=== PATIENT | female | born 1940 | race Caucasian/White ===

== ENCOUNTER 2017-06-23 08:17 | Day surgery (SDC) | payer MEDICARE, MEDICAID ==
--- NOTE | 2017-06-23 06:03 | History and Physical Report ---
DATE: 06/22/2017. CHIEF COMPLAINT AND HISTORY OF CHIEF COMPLAINT: This is a patient with a history of intractable radiculitis and endstage lung cancer. She has a spinal opioid infusion infusing morphine and bupivacaine. During the last refill, battery depletion was identified. She is here for battery replacement. PAST MEDICAL HISTORY: Chronic obstructive pulmonary disease, degenerative arthritis, fibromyalgia, endstage lung cancer. PAST SURGICAL HISTORY: Hysterectomy, rib resection, knee replacement. MEDICATIONS ON ADMISSION: To be provided. ALLERGIES: Penicillin, sulfa, codeine. SOCIAL HISTORY: Cigarette smoking, caffeine consumption. FAMILY HISTORY: Cancer. REVIEW OF SYSTEMS: The patient is appropriate and in no acute distress. The remainder of the systems review does demonstrate respiratory problems, dyspnea, and an irregular heartbeat. PHYSICAL EXAMINATION: General: Height and weight are not available. Vital Signs: Unavailable. HEENT: Within normal limits. Lungs: Clear. Heart: Regular rate and rhythm. Abdomen: Nontender. Musculoskeletal: Examination of the musculoskeletal system shows the pump in the right posterior gluteal margin. The incisional site is intact. There is no breakdown or cellulitis. IMPRESSION: 1. INTRACTABLE LUMBAR RADICULITIS, ICD-10 CODE M54.16 AND M54.17. 2. IMPLANTED SPINAL INFUSION SYSTEM WITH MORPHINE AND BUPIVACAINE WITH BATTERY DEPLETION. PLAN: The patient is here for battery replacement on an outpatient basis. The potential risks, side effects, and complications have all been carefully reviewed and discussed. The procedure will be handled with light sedation and local infiltration. The procedure will be considered outpatient; no overnight stay should be necessary. The potential risks, side effects, and complications have all been reviewed and discussed. Questions were answered. JOB NUMBER: [id number] cc: Cheryle Talavera
[~2017-06-23 08:17] MED LIST: ACETAMINOPHEN 1,000 MG/100 ML BTL IV ONE; BUPIVACAINE HCL IV ONE; CLINDAMYCIN 600MG/50ML PREMIX 600 MG/50 ML BAG IVPB ONE; FAMOTIDINE 20MG TABLET PO ONE; MECLIZINE 25 MG TABLET PO ONE; METOCLOPRAMIDE 10 MG TABLET PO ONE; MORPHINE SULFATE IV ONE; MORPHINE SULFATE/PF 0.05 MG in 0.9 % SODIUM CHLORIDE 10ML VIA 0.95 ML IV ONE; SODIUM CHLORIDE 0.9% IV ONE
[2017-06-23] MEDS ORDERED: FENTANYL PF 100MCG/2ML VIAL IV ONE (08:18)
[2017-06-23] MEDS ORDERED: CLINDAMYCIN (PEDIATRIC DOSING) 150 MG/ML VIAL IVPB ONE (08:18)
[2017-06-23] MEDS ORDERED: BUPIVACAINE 0.75% W/EPI MPF 30ML VIAL IVP ONE (08:18)
[2017-06-23] MEDS ORDERED: MIDAZOLAM HCL 2MG/2ML VIAL IV ONE (08:18)
[2017-06-23] MEDS ORDERED: PROPOFOL 10 MG/ML VIAL IV ONE (08:18)
[2017-06-23] MEDS ORDERED: LIDOCAINE 1% W/EPI 1:200,000 MPF 30ML SQ ONE (08:18)
[2017-06-23] MEDS ORDERED: LIDOCAINE 2% MDV (20MG/ML) 20ML VIAL IV ONE (08:18)
[2017-06-23 08:43] LABS: GRAN % 74.4 % (47-80); HEMATOCRIT 39.5 % (35.0-47.0); HEMOGLOBIN 11.8 gm/dl (11.6-16.0); LYMPH % 14.9 % (16-45); MEAN CELL VOLUME 95.2 fl (81-97); MEAN CORPUSCULAR HEMOGLOBIN 28.4 pg (27-33); MEAN CORPUSCULAR HGB CONC 29.9 g/dl (32-36); MEAN PLATELET VOLUME 9.6 fl (7.4-10.4); MONO % 7.7 % (0-9); PLATELET COUNT 306 K/uL (130-400); RED BLOOD COUNT 4.15 M/uL (3.80-5.40); RED CELL DISTRIBUTION WIDTH 14.1 % (11.5-14.5); WHITE BLOOD COUNT W/O DIFF 7.2 K/uL (4.2-12.2)
[2017-06-23 08:53] LABS: PARTIAL THROMBOPLASTIN TIME 29.2 SECONDS (24.5-39.1)
[2017-06-23 08:54] LABS: BLOOD UREA NITROGEN 23 mg/dL (8-23); CREATININE 0.7 mg/dL (0.5-0.9); EST GLOMERULAR FILTRATION RATE > 60 mL/min; GLUCOSE,RANDOM 100 mg/dL (74-109)
[2017-06-23 10:00] LABS: INR 1.05; PROTHROMBIN TIME (PATIENT) 11.4 SECONDS (9.5-12.1)
[2017-06-23] MEDS ORDERED: DIPHENHYDRAMINE HCL IV 50 MG/ML VIAL IVP PRN ×2 (13:25)
[2017-06-23] MEDS ORDERED: HYDROMORPHONE HCL 1 MG/ML SYRINGE IM PRN (13:25)
[2017-06-23] MEDS ORDERED: ACETAMINOPHEN 325 MG TAB PO PRN ×2 (13:25)
[2017-06-23] MEDS ORDERED: HYDROMORPHONE HCL 2 MG/ML VIAL IM PRN (13:25)
[2017-06-23] MEDS ORDERED: METOCLOPRAMIDE 10 MG TABLET PO PRN (13:25)
[2017-06-23] MEDS ORDERED: AL HYDROX/MAG HYDROX 30ML UD PO PRN (13:25)
[2017-06-23] MEDS ORDERED: DIPHENHYDRAMINE HCL 25 MG CAPSULE PO PRN ×2 (13:25)
[2017-06-23] MEDS ORDERED: OXYCODONE/APAP 10MG-325MG TABLET PO PRN ×2 (13:25)
[2017-06-23] MEDS ORDERED: HYDROCODONE/APAP 7.5/325MG TABLET PO PRN ×2 (13:25)
[2017-06-23] MEDS ORDERED: METOCLOPRAMIDE HCL 10 MG/2 ML VIAL IVP PRN (13:25)
[2017-06-23] MEDS ORDERED: TEMAZEPAM 15 MG CAPSULE PO PRN ×2 (13:25)
[2017-06-23] MEDS ORDERED: NALOXONE 0.4 MG/1 ML VIAL IVP PRN (13:25)
[2017-06-23] MEDS ORDERED: ARNUITY (FLUTICASONE FUROATE) 100MCG INH INH PRN (13:28)
[2017-06-23] MEDS ORDERED: ALBUTEROL HFA 8 GM INHALER INH PRN (13:28)
[2017-06-23] MEDS ORDERED: NICOTINE 21 MG/24 HOUR PATCH TD SCH (13:30)
[2017-06-23] MEDS: RINGERS SOLUTION,LACTATED 1,000 ML IV SCH ×2 (14:58→21:25)
[2017-06-23] MEDS: CLINDAMYCIN 600MG/50ML PREMIX 600 MG/50 ML BAG IVPB SCH (18:06)
--- NOTE | 2017-06-23 20:10 | Operative Note - Ferro ---
DATE OF SURGERY: 06/23/17 PREOPERATIVE DIAGNOSES: 1. LUMBAR RADICULITIS, ICD-10 CODE = M54.16 AND M54.17. 2. IMPLANTED SPINAL OPIOID INFUSION SYSTEM, MORPHINE/BUPIVACAINE, BATTERY DEPLETION. OPERATION: INCISION, SUBCUTANEOUS DISSECTION, AND REMOVAL AND REPLACEMENT OF PROGRAMMABLE PUMP. SURGEON: CESIA ISBELL D.O. ANESTHESIA: LOCAL SEDATION. ANESTHESIA PROVIDER: SHON NELSON CRNA INDICATION: This patient presents with a history of intractable lumbar radiculitis. A spinal opioid infusion system in place infusion Morphine and Bupivacaine. Over the last refill, her battery was identified as depleting. She is here for pump battery change. PROCEDURE: Intravenous line, vital sign monitoring, IV sedation, prepped, draped sterile technique. Under imaging, the pump at the right posterior gluteal margin was identified, skin infiltrated with local, incision made, and subcutaneous dissection was conducted to the previous pump pouch. The pouch was opened, the pump exteriorized and from the indwelling catheter. Antibiotic irrigation and Bovie for hemostasis. The catheter, indwelling, was then interfaced with a new pump pre-filled Morphine and Bupivacaine, which had been placed onto the field. Pump connection was made. Antibiotic irrigation and Bovie for hemostasis. The pump was then placed into the pouch, secured to the posterior fascia using a single nonabsorbable suture. With the pump in the pouch , the incisions were closed Vicryl for fascia, running subcuticular Vicryl for skin. The Dacron sleeve had been closed with three interrupted nonabsorbables. Subcuticular was placed and Dermabond dressing was used to approximate the edges of the wound. The pump was then programmed back to the original parameters. Hydromorphone and Bupivacaine at 2.017 and 4.656 per day. She was transported to the Recovery Room stable. No side-effects from the procedure or the sedation. DISCHARGE INSTRUCTIONS: 1. The sites to remain clean and dry although the Dermabond will allow showering. 2. Standard medications resumed including the antibiotic, Levaquin, 500 mg once a day for 14 days. 3. The office will contact the patient at home to set up the appointment for her to have the incision checked in 5-7 days. She should keep her activities relatively low until we have the opportunity to evaluate the site. All other instructions provided, numbers to contact if there are any problems given. Standard precautions with spinal opioids have been provided; respiratory depression, nausea, vomiting, constipation, urinary retention, lightheadedness, or rash. She was prepared for discharge. cc: Dr. Bryan Mendez JOB NUMBER: [id number] MTDD
[2017-06-23] MEDS ORDERED: AMITRIPTYLINE 10 MG TAB PO SCH (22:00)
[2017-06-23] MEDS ORDERED: MIRTAZAPINE 15 MG TABLET PO SCH (22:00)
[2017-06-23] MEDS ORDERED: METOPROLOL SUCC 50 MG TABLET PO SCH (22:00)
[2017-06-23] MEDS ORDERED: QUETIAPINE FUMARATE 25 MG TABLET PO SCH (22:00)
[2017-06-23] MEDS ORDERED: PANTOPRAZOLE SODIUM 40 MG TABLET PO SCH (22:00)
[2017-06-24] MEDS: CLINDAMYCIN 600MG/50ML PREMIX 600 MG/50 ML BAG IVPB SCH ×2 (02:00→09:20)
[2017-06-24] MEDS: RINGERS SOLUTION,LACTATED 1,000 ML IV SCH (09:18)
== END 2017-06-24 10:41 | disposition home or self-care (01) ==
LOC: SUR 08:17 → MEDSURG 13:13 → SUR 06-24 10:41
PROVIDERS: ATTEND Pain Medicine Interventional Pain Medicine
DX: T85.695A Other mechanical complication of other nervous system device, implant or graft, initial encounter (principal); M54.16 Radiculopathy, lumbar region; M54.17 Radiculopathy, lumbosacral region; I10 Essential (primary) hypertension; Z79.01 Long term (current) use of anticoagulants; Z86.711 Personal history of pulmonary embolism; J44.9 Chronic obstructive pulmonary disease, unspecified; Z95.810 Presence of automatic (implantable) cardiac defibrillator; I25.2 Old myocardial infarction; M06.9 Rheumatoid arthritis, unspecified; Z72.0 Tobacco use; M79.7 Fibromyalgia
CPT/HCPCS: 62368; 80048; 85002; 85025; 85610; 85730; J3490; J7120